=== PATIENT | female | born 1970 | race Caucasian/White ===

== ENCOUNTER 2017-01-14 05:17 | Emergency (ER) | payer SELFPAY ==
[~2017-01-14] VITALS: Ht 160 cm; Wt 72.6 kg
--- NOTE | ~2017-01-14 | EKG ---
PATIENT: LIANNE ASHTON UNIT #: [id number] Ventricular Rate: 82 BPM Atrial Rate: 82 BPM P-R Interval: 170 ms QRS Duration: 78 ms Q-T Interval: 372 ms QTC Calculation(Bezet): 434 ms P [place]: 42 degrees Calculated R [place]: 48 degrees Calculated T [place]: 30 degrees Diagnosis Line: Normal sinus rhythm Diagnosis Line: Cannot rule out Anterior infarct , age Diagnosis Line: undetermined Diagnosis Line: Abnormal ECG Diagnosis Line: No previous ECGs available Diagnosis Line: Confirmed by BLAIR TUCKER MD ([id number]) on Diagnosis Line: 01/14/2017 1:36:23 PM INTERPRETING MD: GARRETT SCEHRER
--- NOTE | ~2017-01-14 | CT71 ---
[facility] A Service [facility] RADIOLOGY TEXT RESULTS PATIENT: LIANNE ASHTON LOCATION: SED : 70 UNIT #: [id number] AGE: [address]: Héctor Arellano MD SEX: F ORDER DR: [id number] [place] [id number] E MR#: [id number] Acc #: [id number] NAME: LIANNE ASHTON : 1970 SEX: F STUDY DATE/TIME: 01/14/2017 7:27 UNIT: SED ROOM: STUDY DESCRIPTION: CT Head Wo Contrast Attending Physician: Héctor Arellano M.D. Ordering Physician: Cali Ward M.D. MEDICAL IMAGING REPORT This report is preliminary unless electronic signature is present. EXAM Head CT without contrast HISTORY New onset of seizures this morning with leg pain and falling. TECHNIQUE Axial images were obtained without contrast. This CT examination was performed with one or more of the following radiation dose reduction techniques: automatic exposure control, adjustment of mA and/or kV according to patient size, and iterative reconstruction. Axial noncontrast images were obtained from the skull base to the vertex. Ventricular size and configuration are normal. There is no evidence of acute infarct or hemorrhage. There are no extraaxial fluid collections. No mass lesion or mass effect is seen. There are no skull fractures. IMPRESSION Normal noncontrast head CT. Dictated by... Jemal Salazar M.D. THIS IS AN ELECTRONICALLY VERIFIED REPORT Jemal Salazra M.D. at 01/14/2017 3:39 PM CONNIEF/dariela TD: 01/14/2017 08:37 JOB #: [id number] [facility] A Service [facility] RADIOLOGY TEXT RESULTS PATIENT: LIANNE ASHTON LOCATION: SED : 70 UNIT #: [id number] AGE: [address]: Héctor Arellano MD SEX: F ORDER DR: MEDICAL IMAGING REPORT Page 1 of 1
[2017-01-14] MEDS ORDERED: ANTIVERT PO (05:36)
[2017-01-14] MEDS ORDERED: FAMOTIDINE20 M1 PO (05:36)
[2017-01-14] MEDS ORDERED: CARAFATE1 GM PO (05:37)
[2017-01-14] MEDS ORDERED: VICODIN ES 7.51 EAC1 PO (05:38)
[2017-01-14] MEDS ORDERED: VENLAFAXINE HCL75 M1 PO (05:39)
[2017-01-14] MEDS ORDERED: SUMATRIPTAN SU100 MG PO (05:39)
[2017-01-14] MEDS ORDERED: PANTOPRAZOLE SO40 MG PO (05:39)
[2017-01-14] MEDS ORDERED: KLONOPIN0.5 M3 PO (05:40)
[2017-01-14] MEDS ORDERED: TOPAMAX25 MG PO (05:40)
[2017-01-14 06:19] LABS: URINE SOURCE CLEAN CATCH
[2017-01-14 06:22] LABS: URINE APPEARANCE CLEAR; URINE BILIRUBIN NEG (NEG); URINE BLOOD 1+ (NEG); URINE COLOR YELLOW; URINE GLUCOSE NEG (NORM); URINE KETONE NEG (NEG); URINE LEUKOCYTE ESTERASE NEG (NEG); URINE NITRATE NEG (NEG); URINE PH 5.5 (5-8); URINE PROTEIN NEG (NEG); URINE SPECIFIC GRAVITY >=1.030 (1.003-1.035); URINE UROBILINOGEN 0.2 MG/DL (NORM)
[2017-01-14 06:24] LABS: BASOPHIL# 0.1 X10e3 (0-0.3); BASOPHIL% 1.5 % (0-2.5); EOSINOPHIL# 0.2 X10e3 (0-0.7); EOSINOPHIL% 2.7 % (0.0-7.0); HEMATOCRIT 32.3 % (35.0-45.0); HEMOGLOBIN 10.9 gm/dL (12.0-16.0); LYMPHOCYTE% 24.7 % (17.0-45.0); MEAN CELL VOLUME 87.4 FL (83-96); MEAN CORPUSCULAR HEMOGLOBIN 29.5 PG (28-34); MEAN CORPUSCULAR HGB CONC 33.7 g/dL (30-36); MEAN PLATELET VOLUME 7.2 FL (6.5-11.5); MONOCYTE# 0.8 X10e3 (0-1.0); MONOCYTE% 9.4 % (3.0-12.0); NEUTROPHIL% 61.7 % (40-75); PLATELET COUNT 338 X10e3 (140-420); RED BLOOD COUNT 3.69 X10e (3.90-5.30); RED CELL DISTRIBUTION WIDTH 13.3 % (11.0-15.5)
[2017-01-14 06:25] LABS: DIFF IND NO; MICRO INDICATED? YES
[2017-01-14 06:26] LABS: CULTURE INDICATED? NO; URINE BACTERIA NEG (NEG); URINE MUCUS PRESENT; URINE SQUAMOUS EPITHELIAL CELL MODERATE /[HPF]; URINE WBC 0-2 /[HPF] (0-5)
[2017-01-14 06:32] LABS: POC - CKMB <1.0 ng/mL (0.0-7.9)
[2017-01-14 06:33] LABS: AMPHETAMINE NEG (NEG); BARBITURATES NEG (NEG); BENZODIAZEPINES POS (NEG); COCAINE NEG (NEG); MARIJUANA NEG (NEG); OPIATES POS (NEG); TRICYCLIC ANTIDEPRESSANTS NEG (NEG); U METHADONE NEG (NEG)
[2017-01-14 06:33] LABS: POC - TROPONIN <0.05 ng/mL (<=0.05)
[2017-01-14 06:57] LABS: ALBUMIN SERUM 3.7 g/dL (3.5-5.0); ALCOHOL BLOOD 8 mg/dL (0); ALKALINE PHOSPHATASE 82 U/L (32-92); ALT (SGPT) 14 U/L (10-40); AST (SGOT) 12 U/L (10-42); BILIRUBIN, DIRECT <0.1 mg/dL (0.0-0.2); BILIRUBIN,INDIRECT 0.2 mg/dL (0.0-0.9); BILIRUBIN,TOTAL 0.3 mg/dL (0.2-2.0); BLOOD UREA NITROGEN 12 mg/dL (9-23); BUN/CREATININE RATIO 13.33; CALCIUM SERUM 8.8 mg/dL (8.4-10.2); CARBON DIOXIDE 25 mmol/L (22-31); CHLORIDE 104 mmol/L (100-111); CPK (CREATINE PHOSPHOKINASE) 55 IU/L (26-140); CREATININE SERUM 0.9 mg/dL (0.6-1.4); GLOM FILT RATE Estimated 76.7 mL/min (>60); GLUCOSE FASTING 68 mg/dL (70-110); POTASSIUM 3.4 mmol/L (3.5-5.1); PROTEIN TOTAL SERUM 5.8 g/dL (6.0-8.3); SODIUM 132 mmol/L (135-145)
== END 2017-01-14 09:54 | disposition home or self-care (01) ==
LOC: SED 05:17
PROVIDERS: Emergency Medicine
DX: R56.9 Unspecified convulsions (principal); Z79.899 Other long term (current) drug therapy; Z88.2 Allergy status to sulfonamides
CPT/HCPCS: 36415; 70450; 80048; 80076; 80307; 81003; 82550; 82553; 82947; 84484; 84703; 85025; 93005; 96374; 99285; G0480; J2060

== ENCOUNTER 2017-01-17 01:21 | Emergency (ER) | payer OTHER ==
[~2017-01-17] VITALS: Ht 160 cm; Wt 72.6 kg
--- NOTE | ~2017-01-17 | CT98 ---
[facility] A Service [facility] RADIOLOGY TEXT RESULTS PATIENT: LIANNE ASHTON LOCATION: SED : 70 UNIT #: [id number] AGE: [address]: Thiago Peter MD SEX: F ORDER DR: [id number] [place] [id number] E MR#: [id number] Acc #: [id number] NAME: LIANNE ASHTON : 1970 SEX: F STUDY DATE/TIME: 01/17/2017 4:15 UNIT: SED ROOM: STUDY DESCRIPTION: CT Lumbar Spine Wo Cont Attending Physician: Thiago Peter M.D. Ordering Physician: Thiago Peter M.D. MEDICAL IMAGING REPORT This report is preliminary unless electronic signature is present. EXAM CT lumbar spine without contrast DATE 01/17/2017 HISTORY 46-year-old female with bilateral lower extremity and back pain since 01/14/2017. COMPARISON None. PROCEDURE 2 mm noncontrast axial images through the lumbar spine. Sagittal and coronal reformatted images were obtained. This CT exam was performed with one or more of the following radiation dose reduction techniques: Automatic exposure control, adjustment of mA and/or kV according to patient size, and iterative reconstruction. FINDINGS No lumbar spine fracture or subluxation is seen. Disc space height appears preserved. Tiny limbus vertebrae at L4. Imaged paraspinal soft tissues within normal limits. Very mild concentric disc bulge at L3-4 with mild left facet arthropathy. No high-grade canal or foraminal stenosis. Mild broad-based disc bulge at L4-5, with mild facet arthropathy and ligamentum flavum hypertrophy. There is resulting mild right greater than left inferior neural foraminal narrowing and mild canal stenosis. [facility] A Service [facility] RADIOLOGY TEXT RESULTS PATIENT: LIANNE ASHTON LOCATION: SED : 70 UNIT #: [id number] AGE: [address]: Thiago Peter MD SEX: F ORDER DR: Mild to moderate right L5-S1 facet arthropathy. No significant canal or foraminal stenosis. IMPRESSION 1. No acute lumbar spine findings. Mild degenerative changes as described in the report. No high-grade canal or high-grade foraminal stenosis is seen. Dictated by... Steffanie Cedeno M.D. THIS IS AN ELECTRONICALLY VERIFIED REPORT Steffanie Cedeno M.D. at 01/17/2017 9:[address] [facility]/vinayak TD: 01/17/2017 19:05 JOB #: [id number] MEDICAL IMAGING REPORT Page 1 of 1
[~2017-01-17 01:21] MED LIST: ANTIVERT PO; CARAFATE1 GM PO; FAMOTIDINE20 M1 PO; KLONOPIN0.5 M3 PO; PANTOPRAZOLE SO40 MG PO; SUMATRIPTAN SU100 MG PO; TOPAMAX25 MG PO; VENLAFAXINE HCL75 M1 PO; VICODIN ES 7.51 EAC1 PO
[2017-01-17 02:41] LABS: CALCIUM SERUM 8.7 mg/dL (8.4-10.2); CREATININE SERUM 0.8 mg/dL (0.6-1.4); GLOM FILT RATE Estimated 88.5 mL/min (>60); POTASSIUM 3.6 mmol/L (3.5-5.1)
== END 2017-01-17 04:59 | disposition home or self-care (01) ==
LOC: SED 01:21
PROVIDERS: Emergency Medicine
DX: M79.605 Pain in left leg (principal); M79.604 Pain in right leg; K21.9 Gastro-esophageal reflux disease without esophagitis; F17.200 Nicotine dependence, unspecified, uncomplicated; Z98.890 Other specified postprocedural states; Z88.0 Allergy status to penicillin
CPT/HCPCS: 36415; 72131; 80048; 96372; 99284; J1885